=== PATIENT | male | born 1980 | race Asian ===

== ENCOUNTER 2019-02-02 16:20 | Emergency (ER) | payer BC ==
[~2019-02-02] VITALS: Ht 167.6 cm; Wt 77.2 kg
[2019-02-02 16:56] VITALS: Ht 167.6 cm; Wt 77.2 kg
[2019-02-02 18:25] VITALS: BP 122/81
== END 2019-02-02 18:25 | disposition home or self-care (01) ==
LOC: ED 16:20
DX: T18.9XXA Foreign body of alimentary tract, part unspecified, initial encounter (principal); X58.XXXA Exposure to other specified factors, initial encounter; Y93.89 Activity, other specified; Y92.89 Other specified places as the place of occurrence of the external cause; Y99.8 Other external cause status